=== PATIENT | male | born 1965 | race Two or more races ===

== ENCOUNTER 2018-10-10 15:31 | Inpatient (IN) | payer BC, OTHER ==
[~2018-10-10] VITALS: Ht 193 cm; Wt 166.9 kg
[2018-10-10] MEDS ORDERED: ALBUTEROL (0.083%) 2.5MG/3ML NEB HHN STA ×2 (17:03→20:22)
[2018-10-10] MEDS ORDERED: IPRATROPIUM BROMIDE (0.02%) 0.5MG/2.5ML NEB HHN STA ×2 (17:03→20:22)
[2018-10-10] MEDS ORDERED: METHYLPREDNISOLONE SOD SUCC 125 MG/2 ML VIAL IV STA (20:22)
[2018-10-10] MEDS ORDERED: AZITHROMYCIN 500 MG in DEXT 5% WATER 250 ML IV STA (20:25)
[2018-10-10] MEDS ORDERED: ONDANSETRON HCL 4MG/2ML INJ IV ONE (20:30)
[2018-10-10] MEDS ORDERED: SULFAMETHOXAZOLE/TRIMETHOPRIM 400/80MG TAB PO ONE (20:30)
[2018-10-10] MEDS ORDERED: MAGNESIUM 2 G PREMIX 50 ML IV ONE (20:30)
[2018-10-10 20:51] LABS: BASOPHILS % 0.3 % (0.0-2.0); EOSINOPHILS % 0.3 % (0.0-5.0); HEMATOCRIT. 39.8 % (42.0-52.0); LYMPHOCYTES % 49.1 % (20.0-50.0); MEAN CORPUSCULAR HEMOGLOBIN 26.2 pg (28.0-32.0); MEAN CORPUSCULAR VOLUME 80.3 fL (80.0-94.0); MEAN PLATELET VOLUME 8.7 fl (7.4-10.4); MONOCYTES % 11.8 % (2.0-8.0); NEUTROPHILS % 38.5 % (40.0-76.0); PLATELET 181 x1000/uL (130-400); RED BLOOD CELL COUNT 4.95 mill/uL (4.7-6.1); RED CELL DISTRIBUTION WIDTH 15.5 % (11.6-14.6)
[2018-10-10 20:55] LABS: CHLORIDE 103 mEq/L (98-107); PROTHROMBIN TIME 10.4 sec (9.6-11.0)
[2018-10-10] MEDS ORDERED: POTASSIUM CHLORIDE 20MEQ TABLET SR PO ONE (21:45)
[2018-10-10] MEDS ORDERED: FUROSEMIDE 20MG/2ML VIAL IVP ONE (21:45)
[2018-10-10] MEDS ORDERED: TRAMADOL 50MG TABLET PO PRN (22:00)
[2018-10-10] MEDS ORDERED: ENOXAPARIN 40MG/0.4ML SYR SUBCUT SCH (22:00)
[2018-10-10] MEDS ORDERED: DOCUSATE SODIUM 100MG CAPSULE PO PRN (22:00)
[2018-10-10] MEDS ORDERED: CLONIDINE 0.1MG TABLET PO PRN (22:00)
[2018-10-10] MEDS ORDERED: ACETAMINOPHEN 325MG TABLET PO PRN (22:00)
[2018-10-10] MEDS ORDERED: MAGNESIUM/ALUMINUM HYDROXIDE/SIMETHICONE 30ML UDC PO PRN (22:00)
[2018-10-10] MEDS ORDERED: DIPHENHYDRAMINE 50MG/ML VIAL IV PRN (22:00)
[2018-10-10] MEDS ORDERED: IPRATROPIUM/ALBUTEROL 0.5-3(2.5)MG/3ML NEB INH PRN (22:00)
[2018-10-10] MEDS ORDERED: GUAIFENESIN 200MG/10ML SUGAR FREE UDC PO PRN (22:00)
[2018-10-10] MEDS ORDERED: ONDANSETRON HCL 4MG/2ML INJ IV PRN (22:00)
[2018-10-10] MEDS ORDERED: LORAZEPAM 0.5MG TABLET PO PRN (22:00)
[2018-10-10] MEDS ORDERED: KETOROLAC 15MG/ML VIAL IV PRN (22:00)
[2018-10-10] MEDS ORDERED: DEXTROSE 50% WATER 50ML SYRINGE IV PRN (22:45)
[2018-10-10 23:25] LABS: ETHANOL BLOOD < 10 mg/dL
[2018-10-10 23:29] LABS: LDL CHOLESTEROL 133 mg/dL (5-100)
[2018-10-10 23:30] LABS: HDL CHOLESTEROL 34 mg/dL (40-59)
[2018-10-11 00:55] VITALS: BP 152/82
[2018-10-11] MEDS ORDERED: ZOLPIDEM TARTRATE 5MG TABLET PO PRN (01:04)
[2018-10-11] MEDS: IPRATROPIUM/ALBUTEROL 0.5-3(2.5)MG/3ML NEB HHN SCH ×6 (01:24→21:10)
[2018-10-11] MEDS: DILTIAZEM HCL 60MG TABLET PO SCH ×3 (01:29→17:45)
[2018-10-11] MEDS ORDERED: CEFTRIAXONE 1 G PREMIX 50 ML IV SCH (02:00)
[2018-10-11] MEDS ORDERED: EMTR1TAB13 MT (03:32)
[2018-10-11 04:00] VITALS: BP 141/80
[2018-10-11] MEDS ORDERED: METHYLPREDNISOLONE SOD SUCC 125 MG/2 ML VIAL IV SCH (06:00)
[2018-10-11] MEDS: BLOOD SUGAR DIAGNOSTIC STRIP TEST SCH ×4 (06:01→22:00)
[2018-10-11] MEDS: INSULIN LISPRO 100 UNITS/ML SUBCUT SCH ×4 (06:09→22:40)
[2018-10-11 08:00] VITALS: BP 143/79
[2018-10-11] MEDS ORDERED: ENOXAPARIN 30MG/0.3ML SYR SUBCUT SCH (09:00)
[2018-10-11] MEDS: FAMOTIDINE 20MG TABLET PO SCH ×2 (09:09→22:02)
[2018-10-11] MEDS: GUAIFENESIN/DM 600MG/30MG ER TAB 12HR PO SCH ×2 (09:09→22:01)
[2018-10-11 12:00] VITALS: BP 143/89
[2018-10-11] MEDS ORDERED: IPRATROPIUM/ALBUTEROL 0.5-3(2.5)MG/3ML NEB HHN SCH (12:00)
[2018-10-11] MEDS: INFLUENZA VIRUS VACCINE(AFLURIA) 0.5ML SYR IM ONE ×2 (14:10→14:20)
[2018-10-11] MEDS: PNEUMOCOCCAL 23-VAL P-SAC VAC 0.5 ML IM ONE ×2 (14:12→14:20)
[2018-10-11] MEDS: METHYLPREDNISOLONE SOD SUCC 40 MG/ML VIAL IV SCH ×2 (14:13→22:02)
[2018-10-11 15:20] LABS: CLARITY URINE CLEAR (CLEAR); COLOR URINE YELLOW (YELLOW); KETONES URINE TRACE (NEGATIVE); LEUKOCYTE ESTERASE URINE NEGATIVE (NEGATIVE); NITRITE URINE NEGATIVE (NEGATIVE); OCCULT BLOOD URINE NEGATIVE (NEGATIVE); PH URINE 6.5 (4.5-8.0); PROTEIN URINE NEGATIVE (NEGATIVE); SPECIFIC GRAVITY URINE 1.031 (1.005-1.030)
[2018-10-11 15:37] LABS: *AMPHETAMINES SCREEN URINE PRESUMTIVE POSITIVE (NEGATIVE); *BARBITURATES SCREEN URINE NEGATIVE (NEGATIVE); *BENZODIAZEPINES SCREEN URINE NEGATIVE (NEGATIVE); *COCAINE SCREEN URINE NEGATIVE (NEGATIVE)
[2018-10-11 15:38] LABS: CANNABINOID URINE SCREEN NEGATIVE (NEGATIVE); METHADONE URINE SCREEN NEGATIVE (NEGATIVE); OPIATES URINE SCREEN NEGATIVE (NEGATIVE); PHENCYCLIDINE URINE SCREEN NEGATIVE (NEGATIVE)
[2018-10-11 16:00] VITALS: BP 161/87
[2018-10-11 20:00] VITALS: BP 156/81
[2018-10-11] MEDS ORDERED: AZITHROMYCIN 500 MG in DEXT 5% WATER 250 ML IV SCH ×4 (21:00)
[2018-10-11] MEDS: ENOXAPARIN 40MG/0.4ML SYR SUBCUT SCH (22:42)
[2018-10-11] MEDS: AZITHROMYCIN 500 MG in DEXT 5% WATER 250 ML IV SCH (23:06)
[2018-10-12] VITALS (7 sets, daily range): BP systolic 131–153; BP diastolic 64–87
[2018-10-12] MEDS: DILTIAZEM HCL 60MG TABLET PO SCH ×5 (00:50→21:10)
[2018-10-12] MEDS: CEFTRIAXONE 1 G PREMIX 50 ML IV SCH (00:51)
[2018-10-12] MEDS: IPRATROPIUM/ALBUTEROL 0.5-3(2.5)MG/3ML NEB HHN SCH ×5 (01:48→21:25)
[2018-10-12] MEDS: METHYLPREDNISOLONE SOD SUCC 40 MG/ML VIAL IV SCH (06:13)
[2018-10-12] MEDS: BLOOD SUGAR DIAGNOSTIC STRIP TEST SCH ×4 (06:18→21:15)
[2018-10-12] MEDS: INSULIN LISPRO 100 UNITS/ML SUBCUT SCH ×4 (06:21→21:22)
[2018-10-12] MEDS: FAMOTIDINE 20MG TABLET PO SCH ×2 (09:00→21:10)
[2018-10-12 09:07] LABS: ABSOLUTE LYMPHOCYTES 1.4 x10E3/uL (0.7-3.1); ABSOLUTE MONOCYTES 0.1 x10E3/uL (0.1-0.9); ABSOLUTE NEUTROPHILS 5.1 x10E3/uL (1.4-7.0); BASOPHILS 0 % (Not Estab.); HEMATOCRIT 43.3 % (37.5-51.0); HEMATOLOGY COMMENT Note: (.); HEMOGLOBIN 14.1 g/dL (13.0-17.7); IMMATURE GRANULOCYTES 0 % (Not Estab.); LYMPHOCYTES 21 % (Not Estab.); MEAN CORPUSCULAR HEMOGLOBIN 25.9 pg (26.6-33.0); MEAN CORPUSCULAR HGB CONC. 32.6 g/dL (31.5-35.7); MEAN CORPUSCULAR VOLUME 80 fL (79-97); MONOCYTES 2 % (Not Estab.); NEUTROPHILS 77 % (Not Estab.); PLATELETS 218 x10E3/uL (150-379); RBC 5.44 x10E6/uL (4.14-5.80); RED CELL DISTRIBUTION WIDTH 15.4 % (12.3-15.4); WBC 6.7 x10E3/uL (3.4-10.8)
[2018-10-12] MEDS: GUAIFENESIN/DM 600MG/30MG ER TAB 12HR PO SCH ×2 (10:13→21:10)
[2018-10-12] MEDS: ENOXAPARIN 40MG/0.4ML SYR SUBCUT SCH ×2 (10:13→21:10)
[2018-10-12 13:06] LABS: % CD 3 POS. LYMPHOCYTES 75.7 % (57.5-86.2); ABSOLUTE CD 3 1060 /uL (622-2402); ABSOLUTE CD 4 HELPER 378 /uL (359-1519); ABSOLUTE CD 8 SUPPRESSOR 686 /uL (109-897); CD4/CD8 RATIO 0.55 (0.92-3.72)
[2018-10-12] MEDS ORDERED: INSULIN LISPRO 100 UNITS/ML SUBCUT SCH (17:15)
[2018-10-13] VITALS: BP 145/72
[2018-10-13] MEDS: IPRATROPIUM/ALBUTEROL 0.5-3(2.5)MG/3ML NEB HHN SCH ×5 (01:27→16:56)
[2018-10-13] MEDS: CEFTRIAXONE 1 G PREMIX 50 ML IV SCH (01:33)
[2018-10-13] MEDS: AZITHROMYCIN 500 MG in DEXT 5% WATER 250 ML IV SCH (01:34)
[2018-10-13 04:00] VITALS: BP 153/90
[2018-10-13] MEDS: BLOOD SUGAR DIAGNOSTIC STRIP TEST SCH ×3 (06:32→16:45)
[2018-10-13] MEDS: INSULIN LISPRO 100 UNITS/ML SUBCUT SCH ×3 (06:33→18:01)
[2018-10-13] MEDS: DILTIAZEM HCL 60MG TABLET PO SCH ×3 (06:35→18:30)
[2018-10-13 08:00] VITALS: BP 169/85
[2018-10-13] MEDS: GUAIFENESIN/DM 600MG/30MG ER TAB 12HR PO SCH (08:31)
[2018-10-13] MEDS: FAMOTIDINE 20MG TABLET PO SCH (08:31)
[2018-10-13] MEDS: ENOXAPARIN 40MG/0.4ML SYR SUBCUT SCH (08:33)
[2018-10-13 12:00] VITALS: BP 146/80
[2018-10-13 16:00] VITALS: BP 141/75
[2018-10-13 18:22] VITALS: BP 141/78
[2018-10-13] MEDS ORDERED: AZITHROMYCIN 500 MG TABLET PO SCH (23:00)
== END 2018-10-13 20:48 | disposition home or self-care (01) | DRG 917 ==
LOC: ER 15:31 → 5WST 20:31 → EDBEDREQ 20:33 → EDBEDREQTM 20:33 → SUPCPDRO 22:03 → ENRESERV 22:20
PROVIDERS: ADMIT Internal Medicine; ATTEND Internal Medicine
DX: T43.621A Poisoning by amphetamines, accidental (unintentional), initial encounter (principal); J96.00 Acute respiratory failure, unspecified whether with hypoxia or hypercapnia; E44.0 Moderate protein-calorie malnutrition; J68.0 Bronchitis and pneumonitis due to chemicals, gases, fumes and vapors; Z68.41 Body mass index [BMI] 40.0-44.9, adult; E66.01 Morbid (severe) obesity due to excess calories; D63.8 Anemia in other chronic diseases classified elsewhere; I10 Essential (primary) hypertension; G47.33 Obstructive sleep apnea (adult) (pediatric); E11.65 Type 2 diabetes mellitus with hyperglycemia; E87.5 Hyperkalemia; E87.6 Hypokalemia; Z79.4 Long term (current) use of insulin; Z87.09 Personal history of other diseases of the respiratory system; Y92.89 Other specified places as the place of occurrence of the external cause
CPT/HCPCS: 36415; 71045; 80061; 80305; 80320; 82962; 83036; 83605; 83615; 83880; 84145; 84484; 86359; 86360; 90686; 90732; 93005; 93306; 94640; 96374; 96375; 99285; J0456; J0696; J1650; J1815; J1940; J2920; J2930; J3475; J7050; J7060; J7611; J7620; G0480